=== PATIENT | male | born 1940 | race Caucasian/White ===

== ENCOUNTER 2018-02-25 18:51 | Emergency (ER) | payer MEDICARE, OTHER ==
[2018-02-25 19:01] VITALS: BP 184/94
--- NOTE | 2018-02-25 19:10 | ED Physician Documentation ---
PD HPI UPPER EXT INJURY - Stated complaint Stated Complaint: LEFT ARM INJ - Chief complaint Chief Complaint: Ext Problem - History obtained from History obtained from: Patient - History of Present Illness Location: Other (About 3 days ago he tripped and fell, hitting his upper forearm on the left/elbow against a pole and has persistent pain there and now edema in the hand. Pain is mild to nonexistent at rest and hurts mostly with elbow extension. No other injuries.) Review of Systems Constitutional: denies: Fever, Chills Throat: denies: Dental pain / toothache, Sore throat Cardiac: denies: Chest pain / pressure, Palpitations Respiratory: denies: Dyspnea PD PAST MEDICAL HISTORY - Past Medical History Past Medical History: Yes Cardiovascular: Hypertension Respiratory: Asthma GI: Ulcers Musculoskeletal: Osteoarthritis - Past Surgical History Past Surgical History: Yes - Present Medications Home Medications: Ambulatory Orders Medication Instructions Recorded Confirmed Albuterol Sulfate [Proair 2 puffs PO PRN PRN 02/25/18 02/25/18 Respiclick] Carvedilol 1 tab PO BID 02/25/18 02/25/18 Fluticasone 110 Mcg [Flovent] 1 puffs PO DAILY 02/25/18 02/25/18 Ibuprofen 3 tab PO DAILY 02/25/18 02/25/18 Simvastatin 1 tab PO DAILY 02/25/18 02/25/18 Spironolactone 0.5 tab PO DAILY 02/25/18 02/25/18 - Allergies Allergies/Adverse Reactions: Allergies Allergy/AdvReac Type Severity Reaction Status Date / Time shellfish derived Allergy Severe Edema Verified 02/25/18 19:10 - Social History Does the pt smoke?: No Smoking Status: Never smoker Does the pt drink ETOH?: No Does the pt have substance abuse?: No - Immunizations Immunizations are current?: Yes - POLST Patient has POLST: No PD ED PE NORMAL - Vitals Vital signs reviewed: Yes - General General: Alert and oriented X 3, No acute distress - Neck Neck: Supple, no meningeal sign, No bony TTP - Extremities Extremities: Other (Tender over the proximal ulna of the left arm and unable to completely extend the elbow, he has very limited range of motion of flexion and extension at the wrist and is quite tender and edematous about the wrist but not in the snuffbox or hand. The hand is very edematous just not tender.) - Neuro Neuro: Alert and oriented X 3, Normal speech Results - Vitals Vitals: Vital Signs - 24 hr 02/25/18 18:56 Temperature 37 C Heart Rate 76 Respiratory 20 Rate Blood Pressure 184/94 H O2 Saturation 96 Oxygen O2 Source Room air - Rads (name of study) X-rays of the left wrist, elbow, and forearm Radiology: EMP read contemporaneously (There is a nondisplaced radial head fracture, otherwise degenerative changes but no other fractures.) PD MEDICAL DECISION MAKING - ED course ED course: 77-year-old gentleman presents with persistent pain and swelling a few days after a left arm injury and is found to have a left radial head fracture. He is placed in a sling and conservative care and orthopedic follow-up were advised. Departure - Departure Disposition: 01 Home, Self Care Clinical Impression: Pain in extremity Qualifiers: Extremity pain location: upper extremity Laterality: left Qualified Code(s): M79.602 - Pain in left arm Left radial head fracture Qualifiers: Encounter type: initial encounter Fracture type: closed Fracture alignment: nondisplaced Qualified Code(s): S52.125A - Nondisplaced fracture of head of left radius, initial encounter for closed fracture Condition: Good Record reviewed to determine appropriate education?: Yes Instructions: ED Fx Radial Head Follow-Up: [facility] [Provider Group] Comments: Call the orthopedic office listed on this form tomorrow for follow-up within the week. Keep the sling on for the most part until you see them but you can take it off for showering etc. Tylenol as needed for pain. Your blood pressure was elevated today on check into the emergency department. This does not mean that you have hypertension, it is a common phenomenon to come to the emergency department and have elevated blood pressure. I recommend that you see your primary care physician within the week to have it rechecked when you are feeling better.
--- NOTE | 2018-02-25 19:43 | XRAY Report ---
EXAM: LEFT FOREARM RADIOGRAPHY EXAM DATE: 02/25/2018 07:12 PM. CLINICAL HISTORY: Trauma, pain. COMPARISON: None. TECHNIQUE: 2 views. FINDINGS: Bones: Normal. No fractures or bone lesions. Joints: Degenerative changes in the elbow. Unremarkable wrist. Soft Tissues: Mild soft tissue swelling posterior to proximal ulna. IMPRESSION: Soft tissue swelling. [facility] Referring Provider Line: [phone] SITE ID: [id number]
--- NOTE | 2018-02-25 19:44 | XRAY Preliminary Report ---
Exam: XR ELBOW 3 VIEW LT IMPRESSION: Nondisplaced radial head fracture. [facility] SITE ID: [id number]
--- NOTE | 2018-02-25 19:45 | XRAY Report ---
EXAM: LEFT WRIST RADIOGRAPHY EXAM DATE: 02/25/2018 07:25 PM. CLINICAL HISTORY: Trauma, pain. COMPARISON: None. TECHNIQUE: 4 views. FINDINGS: Bones: Normal. No fractures or bone lesions. Joints: Moderate to marked degenerative changes in the first CMC and navicular multangular joints. Ot herwise unremarkable. Soft Tissues: Unremarkable. IMPRESSION: Degenerative changes. [facility] Referring Provider Line: [phone] SITE ID: [id number]
--- NOTE | 2018-02-25 19:45 | XRAY Report ---
EXAM: LEFT ELBOW RADIOGRAPHY EXAM DATE: 02/25/2018 07:12 PM. CLINICAL HISTORY: Trauma, pain. COMPARISON: None. TECHNIQUE: 3 views. FINDINGS: Bones: Subtle nondisplaced radial head fracture. Joints: Marginal osteophytes. Distended anterior and posterior fat pads indicating joint effusion. Soft Tissues: Prominent soft tissue swelling posterior to the distal humerus. IMPRESSION: Nondisplaced radial head fracture. [facility] Referring Provider Line: [phone] SITE ID: [id number]
== END 2018-02-25 19:57 | disposition home or self-care (01) ==
LOC: ED 18:51
DX: S52.125A Nondisplaced fracture of head of left radius, initial encounter for closed fracture (principal); M79.602 Pain in left arm; W01.10XA Fall on same level from slipping, tripping and stumbling with subsequent striking against unspecified object, initial encounter; I10 Essential (primary) hypertension
CPT/HCPCS: 99283

== ENCOUNTER 2020-09-16 14:23 | Outpatient (CLI) | payer MEDICARE, OTHER ==
[2020-09-16 20:20] LABS: CALCIUM 9.3 mg/dL (8.5-10.3); CREATININE 1.3 mg/dL (0.6-1.2)
== END 2020-09-16 14:24 | disposition home or self-care (01) ==
LOC: LAB.S 14:23
PROVIDERS: ATTEND Physician Assistant
DX: N18.30 Chronic kidney disease, stage 3 unspecified (principal)
CPT/HCPCS: 36415; 80048